=== PATIENT | male | born 1965 | race Caucasian/White ===

== ENCOUNTER 2022-09-28 06:15 | Day surgery (SDC) | payer BC, SELFPAY ==
[2022-09-19 08:33] VITALS: BMI 22.3
--- NOTE | 2022-09-28 10:14 | PM.HPGS ---
History of Present Illness History of Present Illness Consent: Risks, benefits, and alternatives have been discussed and questions answered. Patient agrees to proceed with procedure. Chief complaint: GERD Narrative: Christoph Porter is a 56 year old male Who began having issues with respiratory symptoms in April with a sore throat and some coughing.? After the cold symptoms subsided he noted that he had persistent sore throat.? He has had some persistent postnasal drainage at times of feel like drainage is hung up in his throat.? He does not have dysphagia.? He states that he tried taking omeprazole and prior to that Pepcid each for couple weeks each because it was suggested him that he may have reflux causing no symptoms.? Which did not seem to affect his symptoms.? His father and another relative had to have their ?throat stretched? from time to time.? Also his father who had had a stricture dilated was found the following year by Dr. Dailey to have cancer of the esophagus.?? Review of Systems Review of Systems: All systems reviewed & are unremarkable except as noted in HPI and below PMFSH Past Medical History Medical History Hx of skin cancer, basal cell Family History Family History Father Esophageal cancer Social History Social History Smoking status: Never smoker Alcohol intake: current Alcohol use details: social Substance use: never Substance use type: does not use Living arrangements: with family Spiritual care concerns: No Meds Home Medications and Allergies Home Medications Medication Instructions Recorded Confirmed Type cholecalciferol (vitamin D3) 50 50 mcg PO DAILY 08/12/22 09/19/22 History mcg (2,000 unit) capsule clobetasol 0.05 % topical cream 1 applic topical DAILY 08/12/22 09/19/22 History fexofenadine 180 mg tablet 180 mg PO DAILY 08/12/22 09/19/22 History fluticasone propionate 50 1 spray intranasal DAILY 08/12/22 09/19/22 History mcg/actuation nasal spray,suspension loratadine-pseudoephedrine ER 10 1 tablet PO DAILY 08/12/22 09/19/22 History mg-240 mg tablet,extended [id number] (Loratadine-D) magnesium citrate 100 mg capsule 100 mg PO DAILY 08/12/22 09/19/22 History meloxicam 15 mg tablet 15 mg PO DAILY 08/12/22 09/19/22 History triamcinolone acetonide 0.1 % 1 applic dental BID 08/12/22 09/19/22 History dental paste turmeric 400 mg capsule 400 mg PO DAILY 08/12/22 09/19/22 History valacyclovir 1 gram tablet 1,000 mg PO DAILY 08/12/22 09/19/22 History Allergies Allergy/AdvReac Type Severity Reaction Status Date / Time No Known Allergies Allergy Verified 09/28/22 10:15 Exam Const: General: alert Orientation/consciousness: patient oriented x3 Resp: Auscultation: clear to auscultation bilaterally Cardio: Rhythm: regular rhythm GI: GI Palp: Yes Soft to palpation and No Tenderness to palpation present (GI) Neuro: General: patient oriented x3 Assessment and Plan Assessment and plan (1) GERD (gastroesophageal reflux disease): Code(s): K21.9 - Gastro-esophageal reflux disease without esophagitis Status: Acute Assessment and Plan: EGD with possible biopsy or dilatation or cautery. (2) Family history of esophageal cancer: Code(s): Z80.0 - Family history of malignant neoplasm of digestive organs Status: Acute
[2022-09-28 10:15] VITALS: BP 122/79; PULSE 49; RESP 20; TEMP 36.2; O2SAT 100
[2022-09-28] MEDS: LACTATED RINGERS 1,000 ML 150 ML IV CONT (10:27)
[2022-09-28 11:27] VITALS: BP 123/79; PULSE 62; RESP 19; O2SAT 100
[2022-09-28 11:37] VITALS: BP 128/84; PULSE 57; RESP 20; O2SAT 100
[2022-09-28 11:47] VITALS: BP 119/79; PULSE 56; RESP 20; O2SAT 98
== END 2022-09-28 12:03 | disposition home or self-care (01) ==
PROVIDERS: PCP Internal Medicine; Visit Provider Internal Medicine Gastroenterology
PROC: 0DJ08ZZ Inspection of Upper Intestinal Tract, Via Natural or Artificial Opening Endoscopic (ICD-10-PCS; CPT 43235; principal; 2022-09-28 12:30)
DX: K21.00 Gastro-esophageal reflux disease with esophagitis, without bleeding (principal); Z80.0 Family history of malignant neoplasm of digestive organs
CPT/HCPCS: 43239; 87081; 88305; J2405; J2704; J3010; J7120